=== PATIENT | male | born 1955 | race Caucasian/White ===

== ENCOUNTER 2017-04-02 00:07 | Emergency (ER) | payer BC ==
--- NOTE | 2017-04-02 00:53 | EDM.PDOC ---
ED HPI GENERAL MEDICAL PROBLEM - General Chief Complaint: Genitourinary Problem Stated Complaint: UNABLE TO PEE Time Seen by Provider: 04/02/17 00:25 Source of Information: Reports: Patient History Limitations: Reports: No Limitations - History of Present Illness INITIAL COMMENTS - FREE TEXT/NARRATIVE: Rocael comes to [facility] ED with inability to void for the past several hours. There is lower abdominal pain and fullness, urgency, and some lower back pain. There is a remote hx of BPH and TURP, progressive reduction in stream volume and delays in emptying. He does see a Urologist annually in recent years. lower abdomen Pain Score (Numeric/FACES): 10 - Related Data Allergies Allergy/AdvReac Type Severity Reaction Status Date / Time No Known Allergies Allergy Verified 04/02/17 00:32 Home Meds: Home Meds Simvastatin [Zocor] 20 mg PO BEDTIME 04/02/17 [History] Past Medical History Genitourinary History: Reports: Prostate Disorder ED ROS GENERAL - Review of Systems Review Of Systems: ROS reveals no pertinent complaints other than HPI. ED EXAM, RENAL/ - Physical Exam Exam: See Below Exam Limited By: No Limitations General Appearance: Alert, WD/WN, Moderate Distress Head: Normocephalic Neck: Normal Inspection, Supple, Non-Tender, Full Range of Motion Respiratory/Chest: Lungs Clear, Normal Breath Sounds, Chest Non-Tender Cardiovascular: Normal Peripheral Pulses, Regular Rate, Rhythm GI/Abdominal: Normal Bowel Sounds, Soft, Distended (suprapubically) (Male) Exam: No Hernia, Normal Inspection, Suprapubic Fullness, Other ( prostate 3+) Rectal (Males) Exam: BPH Back Exam: Normal Inspection Extremities: Normal Inspection Neurological: Alert, Oriented, CN II-XII Intact, Normal Cognition, Normal Gait, No Motor/Sensory Deficits Psychiatric: Normal Affect, Anxious Skin Exam: Warm, Dry Lymphatic: No Adenopathy ED PROCEDURES - Additional/Other Procedure(s) Procedure(s) (Free Text): Following consent, I inserted a #14 F Lujan catheter w 5 ml baloon uneventfully , and emptied 500 ml of parrish urine, sent to lab. Course - Vital Signs Last Recorded V/S: Last Vital Signs Temp 36.6 C 04/02/17 00:10 Pulse 91 04/02/17 00:10 Resp 18 04/02/17 00:10 BP 154/93 H 04/02/17 00:10 Pulse Ox 98 04/02/17 00:10 - Orders/Labs/Meds Orders: Active Orders 24 hr Category Date Time Status CULTURE URINE [RM] Stat Lab 04/02/17 00:59 Uncollected Departure - Departure Time of Disposition: 01:03 Disposition: Home, Self-Care 01 Condition: Good Clinical Impression: Urinary retention due to benign prostatic hyperplasia - Discharge Information Referrals: Senthil Kebede MD [Primary Care Provider] - Forms: ED Department Discharge - Problem List & Annotations (1) Urinary retention due to benign prostatic hyperplasia SNOMED Code(s): 107538231 Code(s): N40.1 - BENIGN PROSTATIC HYPERPLASIA WITH LOWER URINARY TRACT SYMP; R33.8 - OTHER RETENTION OF URINE Status: Acute Current Visit: Yes Annotation/Comment:: Routine catheter cares, and follow up with Urologist for further management. - Problem List Review Problem List Initiated/Reviewed/Updated: Yes - My Orders Last 24 Hours: My Active Orders 04/02/17 00:59 CULTURE URINE [RM] Stat - Assessment/Plan Last 24 Hours: My Active Orders 04/02/17 00:59 CULTURE URINE [RM] Stat Plan: Follow up with Urologist.
== END 2017-04-02 01:25 | disposition home or self-care (01) ==
LOC: FB.ED 00:07
DX: N40.1 Benign prostatic hyperplasia with lower urinary tract symptoms (principal); R33.8 Other retention of urine
CPT/HCPCS: 51702; 51798; 87086; 99283

== ENCOUNTER 2021-04-18 15:42 | Observation (INO) | payer BC ==
--- NOTE | 2021-04-18 16:07 | EDM.PDOC ---
ED HPI GENERAL MEDICAL PROBLEM - General Stated Complaint: SOB Time Seen by Provider: 04/18/21 16:00 Source of Information: Reports: Patient History Limitations: Reports: No Limitations - History of Present Illness INITIAL COMMENTS - FREE TEXT/NARRATIVE: 65-year-old male who presents to the emergency department reporting marked shortness of breath with activity noted today. He states that really beginning about 10 days ago he noticed about 3 times when he was having sexual relations with his that he became short of breath with sex and this was unusual as he hadn't really never had anything like that happen before. He also does refereeing for basketball games and he was doing that and really had no symptoms at all when he was going up and down the court but beginning today he was helping move a large [place]ash[place] tree at his [place]andaen and he became very short of breath when he was helping move that it took him quite a bit of time until he was no longer feeling short of breath. It did get better with rest and he was fine until he was at home and he was walking up the steps in the basement and he again got very short of breath with this and that prompted him to come to the emergency department for evaluation. He denies any chest pain, arm pain, neck pain or back or abdominal pain. He had no weakness or dizziness and had no syncope or near syncope. He has had no cough or nasal congestion. He has had no leg swelling or leg pains. He denies any pain and would rated his pain as a 0/10. At rest, he has no difficulty breathing. There are no other associated signs or symptoms. There are no other modifying factors. Onset: Other (Maybe 10 days ago but certainly symptoms were worse today.) Duration: Getting Worse Location: Reports: Other (No pain) Improves with: Reports: Rest Worsens with: Reports: Other (Activity), Movement Context: Reports: Other (As above) Associated Symptoms: Reports: No Other Symptoms (Except as above) Treatments PEDICURIST: Reports: Other (see below) (Nothing.) - Related Data Allergies Allergy/AdvReac Type Severity Reaction Status Date / Time No Known Allergies Allergy Verified 04/18/21 17:00 Home Meds: Home Meds Simvastatin [Zocor] 20 mg PO BEDTIME 04/02/17 [History] Past Medical History Cardiovascular History: Reports: High Cholesterol Genitourinary History: Reports: BPH Musculoskeletal History: Reports: Back Pain, Chronic Other Musculoskeletal History: back problem - Past Surgical History Male Surgical History: Reports: TURP-Transurethral Resection of Prostate (2) Social & Family History - Family History Cardiac: Reports: CAD (Grandfathers but none and any uncles or his father.) - Tobacco Use Tobacco Use Status *Q: Unknown Ever Used Tobacco (Nonsmoker) - Caffeine Use Caffeine Use: Reports: Coffee, Soda - Alcohol Use Alcohol Use History: Yes Alcohol Use Frequency: Weekly - Living Situation & Occupation Living situation: Reports: Occupation: Retired ED ROS GENERAL - Review of Systems Review Of Systems: See Below Constitutional: Denies: Fever, Chills, Malaise HEENT: Denies: Throat Pain, Throat Swelling Respiratory: Reports: Shortness of Breath. Denies: Cough, Sputum Cardiovascular: Reports: Dyspnea on Exertion. Denies: Chest Pain, Lightheadedness Endocrine: Denies: Fatigue GI/Abdominal: Denies: Abdominal Pain, Nausea, Vomiting : Denies: Dysuria, Hematuria Musculoskeletal: Denies: Neck Pain, Shoulder Pain, Arm Pain, Back Pain, Leg Pain Skin: Denies: Diaphoresis, Rash Neurological: Denies: Dizziness, Headache Hematologic/Lymphatic: Denies: Easy Bleeding, Easy Bruising ED EXAM, GENERAL - Physical Exam Exam: See Below Exam Limited By: No Limitations General Appearance: Alert, WD/WN, No Apparent Distress Eye Exam: Bilateral Eye: EOMI, Normal Inspection, PERRL Ears: Normal External Exam, Hearing Grossly Normal Ear Exam: Bilateral Ear: Auricle Normal Nose: Normal Inspection, Normal Mucosa, No Blood Throat/Mouth: Normal Inspection, Normal Lips, Normal Oropharynx, Normal Voice, No Airway Compromise Head: Atraumatic, Normocephalic Neck: Normal Inspection, Supple, Non-Tender, Full Range of Motion Respiratory/Chest: No Respiratory Distress, Lungs Clear, Normal Breath Sounds, No Accessory Muscle Use, Chest Non-Tender Cardiovascular: Normal Peripheral Pulses, Regular Rate, Rhythm, No Edema, No Gallop Peripheral Pulses: 2+: Radial (L), Radial (R), Dorsalis Pedis (L), Dorsalis Pedis (R) GI/Abdominal: Normal Bowel Sounds, Soft, Non-Tender, No Mass Back Exam: Normal Inspection Extremities: Normal Inspection, Normal Range of Motion, Non-Tender, No Pedal Edema, Normal Capillary Refill. No: Matilde's Sign Neurological: Alert, Oriented, CN II-XII Intact, Normal Cognition, No Motor/Sensory Deficits Psychiatric: Normal Affect Skin Exam: Warm, Dry, Intact, Normal Color, No Rash #1 Interpretation EKG Date: 04/18/21 Time: 16:02 Rhythm: NSR Rate (Beats/Min): 84 [place]: Normal P-Wave: Present QRS: Normal ST-T: Normal QT: Normal Comparison: NA - No Prior EKG Course - Vital Signs Last Recorded V/S: Last Vital Signs Temp 37.1 C 04/18/21 20:59 Pulse 68 04/18/21 20:59 Resp 16 04/18/21 20:59 BP 139/83 04/18/21 20:59 Pulse Ox 95 04/18/21 20:59 - Orders/Labs/Meds Orders: Active Orders 24 hr Category Date Time Status Ang Chest [CT] Stat Exams 04/18/21 18:10 Taken Chest 2V [CR] Stat Exams 04/18/21 16:23 Taken Sodium Chloride 0.9% [Saline Flush] Med 04/18/21 17:31 Active 10 ml FLUSH ASDIRECTED PRN Peripheral IV Insertion Adult [OM.PC] Routine Oth 04/18/21 17:31 Ordered EKG 12 Lead [EK] Routine Ther 04/18/21 16:22 Ordered Medication Orders Acetaminophen (Acetaminophen 325 Mg Tab) 650 mg PO Q4H PRN PRN Reason: Pain (Mild 1-3)/fever Sodium Chloride (Normal Saline) 1,000 mls @ 100 mls/hr IV ASDIRECTED BRUCE Last Admin: 04/18/21 21:12 Dose: 100 mls/hr Documented by: TIMOTHY Heparin Sodium/Sodium Chloride (Heparin 25,000 Units In 1/2 Ns 500 Ml) 500 mls @ 35.924 mls/hr IV ASDIRECTED BRUCE; Protocol Last Admin: 04/18/21 21:16 Dose: 18 units/kg/hr, 35.924 mls/hr Documented by: TIMOTHY Cosigned by: NAKUL Ondansetron HCl (Ondansetron 4 Mg/2 Ml Sdv) 4 mg IV Q6H PRN PRN Reason: Nausea/Vomiting Sodium Chloride (Sodium Chloride 0.9% 10 Ml Syringe) 10 ml FLUSH ASDIRECTED PRN PRN Reason: Keep Vein Open Last Admin: 04/18/21 17:45 Dose: 10 ml Documented by: NAKUL Labs: Laboratory Tests 04/18/21 04/18/21 04/18/21 Range/Units 16:30 16:30 16:30 WBC 8.5 (3.2-10.1) x10-3/uL RBC 4.87 (3.90-5.90) x10(6)uL Hgb 14.8 (12.9-17.7) g/dL Hct 43.0 (38.3-50.1) % MCV 88.3 (80.8-98.7) fL MCH 30.4 (27.0-33.3) pg MCHC 34.4 (28.7-35.3) g/dL RDW 12.8 (12.4-15.0) % Plt Count 269 (117-477) x10(3)uL APTT (24.4-33.2) SECONDS D-Dimer, Quantitative 8.96 H (0.0-0.59) mg/LFEU Sodium 139 (135-145) mmol/L Potassium 4.1 (3.5-5.3) mmol/L Chloride 104 (100-110) mmol/L Carbon Dioxide 27 (21-32) mmol/L BUN 19 H (7-18) mg/dL Creatinine 1.5 H (0.70-1.30) mg/dL Est Cr Clr Drug Dosing TNP Estimated GFR (MDRD) 47 L (>60) BUN/Creatinine Ratio 12.7 (9-20) Glucose 94 (80-116) mg/dL Calcium 8.6 (8.6-10.2) mg/dL Magnesium 2.0 (1.8-2.5) mg/dL Total Bilirubin 0.6 (0.1-1.3) mg/dL AST 26 H (5-25) IU/L ALT 41 H (12-36) U/L Alkaline Phosphatase 61 (56-112) IU/L Troponin I (4.0-60.3) pg/mL NT-Pro-B Natriuret Pep (<=125) pg/mL Total Protein 6.9 (6.0-8.0) g/dL Albumin 3.8 (3.2-4.6) g/dL Globulin 3.1 g/dL Albumin/Globulin Ratio 1.2 TSH, Ultra Sensitive (0.36-3.74) IU/mL SARS-CoV-2 RNA (MATILDA) (NEGATIVE) 04/18/21 04/18/21 04/18/21 Range/Units 16:30 16:30 16:30 WBC (3.2-10.1) x10-3/uL RBC (3.90-5.90) x10(6)uL Hgb (12.9-17.7) g/dL Hct (38.3-50.1) % MCV (80.8-98.7) fL MCH (27.0-33.3) pg MCHC (28.7-35.3) g/dL RDW (12.4-15.0) % Plt Count (117-477) x10(3)uL APTT 26.0 (24.4-33.2) SECONDS D-Dimer, Quantitative (0.0-0.59) mg/LFEU Sodium (135-145) mmol/L Potassium (3.5-5.3) mmol/L Chloride (100-110) mmol/L Carbon Dioxide (21-32) mmol/L BUN (7-18) mg/dL Creatinine (0.70-1.30) mg/dL Est Cr Clr Drug Dosing Estimated GFR (MDRD) (>60) BUN/Creatinine Ratio (9-20) Glucose (80-116) mg/dL Calcium (8.6-10.2) mg/dL Magnesium (1.8-2.5) mg/dL Total Bilirubin (0.1-1.3) mg/dL AST (5-25) IU/L ALT (12-36) U/L Alkaline Phosphatase (56-112) IU/L Troponin I 14.7 (4.0-60.3) pg/mL NT-Pro-B Natriuret Pep 140 H (<=125) pg/mL Total Protein (6.0-8.0) g/dL Albumin (3.2-4.6) g/dL Globulin g/dL Albumin/Globulin Ratio TSH, Ultra Sensitive 2.16 (0.36-3.74) IU/mL SARS-CoV-2 RNA (MATILDA) (NEGATIVE) 04/18/21 Range/Units 19:00 WBC (3.2-10.1) x10-3/uL RBC (3.90-5.90) x10(6)uL Hgb (12.9-17.7) g/dL Hct (38.3-50.1) % MCV (80.8-98.7) fL MCH (27.0-33.3) pg MCHC (28.7-35.3) g/dL RDW (12.4-15.0) % Plt Count (117-477) x10(3)uL APTT (24.4-33.2) SECONDS D-Dimer, Quantitative (0.0-0.59) mg/LFEU Sodium (135-145) mmol/L Potassium (3.5-5.3) mmol/L Chloride (100-110) mmol/L Carbon Dioxide (21-32) mmol/L BUN (7-18) mg/dL Creatinine (0.70-1.30) mg/dL Est Cr Clr Drug Dosing Estimated GFR (MDRD) (>60) BUN/Creatinine Ratio (9-20) Glucose (80-116) mg/dL Calcium (8.6-10.2) mg/dL Magnesium (1.8-2.5) mg/dL Total Bilirubin (0.1-1.3) mg/dL AST (5-25) IU/L ALT (12-36) U/L Alkaline Phosphatase (56-112) IU/L Troponin I (4.0-60.3) pg/mL NT-Pro-B Natriuret Pep (<=125) pg/mL Total Protein (6.0-8.0) g/dL Albumin (3.2-4.6) g/dL Globulin g/dL Albumin/Globulin Ratio TSH, Ultra Sensitive (0.36-3.74) IU/mL SARS-CoV-2 RNA (MATILDA) Negative (NEGATIVE) Meds: Medications Generic Name Dose Route Start Last Admin Trade Name Freq PRN Reason Stop Dose Admin Acetaminophen 650 mg 04/18/21 20:58 Acetaminophen 325 Mg Tab PO Q4H PRN Pain (Mild 1-3)/fever Sodium Chloride 1,000 mls @ 100 mls/hr 04/18/21 21:00 04/18/21 21:12 Normal Saline IV 100 mls/hr ASDIRECTED BRUCE Administration Heparin Sodium/Sodium Chloride 500 mls @ 35.924 mls/hr 04/18/21 21:15 04/18/21 21:16 Heparin 25,000 Units In 1/2 Ns 500 Ml IV 18 units/kg/hr ASDIRECTED BRUCE 35.924 mls/hr Administration Protocol 18 UNITS/KG/HR Ondansetron HCl 4 mg 04/18/21 20:58 Ondansetron 4 Mg/2 Ml Sdv IV Q6H PRN Nausea/Vomiting Sodium Chloride 10 ml 04/18/21 17:31 04/18/21 17:45 Sodium Chloride 0.9% 10 Ml Syringe FLUSH 10 ml ASDIRECTED PRN Administration Keep Vein Open Discontinued Medications Generic Name Dose Route Start Last Admin Trade Name Freq PRN Reason Stop Dose Admin Heparin Sodium (Porcine) 7,500 units 04/18/21 19:38 04/18/21 21:15 Heparin Sodium 5,000 Units/Ml Vial IVPUSH 04/18/21 19:39 7,500 units ONETIME ONE Administration Sodium Chloride 500 mls @ 999 mls/hr 04/18/21 17:31 04/18/21 17:45 Normal Saline IV 04/18/21 18:01 999 mls/hr .BOLUS ONE Administration Heparin Sodium/Dextrose 25,000 units in 500 mls @ 35.924 mls/hr 04/18/21 19:45 Heparin 25,000 Units In D5w 500 Ml IV TITRATE [facility] Protocol 18 UNITS/KG/HR Iopamidol 75 ml 04/18/21 18:14 04/18/21 18:49 Iopamidol 755 Mg/Ml 75 Ml Bottle IV 04/18/21 18:15 75 ml ONETIME ONE Administration - Radiology Interpretation Free Text/Narrative:: Two-view chest x-ray showed no acute disease per the [facility] radiologist. CTA of the chest shows moderate pulmonary emboli seen throughout the bilateral hemithoraces without evidence of heart strain. There is bibasilar atelectasis. This was per the [facility] radiologist. - Re-Assessments/Exams Free Text/Narrative Re-Assessment/Exam: 04/18/21 17:15: White blood cell count is 8.5. Hemoglobin is 14.8. Platelet count is normal. Sodium is 139. Potassium is 4.1. Bicarbonate is 27. BUN is 19 and creatinine is 1.5. Glucose is 94. AST and ALT are mildly elevated. ProBNP is normal. A troponin was normal. A TSH was normal. A d-dimer was 8.96. With the d-dimer elevated, he will need a CTA of his chest to further assess him for pulmonary emboli. This was discussed with the patient and he would be in agreement with this. I will hydrate the patient with normal saline prior to the CT scan. 04/18/21 19:10: CTA of the chest showed bilateral pulmonary emboli and a moderate burden. There was no evidence of RV strain. The patient is remaining hemodynamically and respiratory stable. He will need admission with anticoagulation and close cardiac monitoring. I will discuss all this with the patient and his but I will also call and discuss this with one of the internists at [facility] in [place]. 04/18/21 19:20: I discussed all this with the patient and his . I told him that he would need admission to the hospital and I feel that he would be appropriate for admission to [facility]. I also offered calling to discuss his case with at [facility] [place] and possibly transferred to [facility] [place]. They would really want to be admitted to this facility. 04/18/21 19:30: I discussed the patient's case with Dr. Martin, hospitalist at [facility] in [place], and he felt that the patient should be treated with IV heparin for DVT protocol negative secondary to the patient's creatinine elevation. He felt that once the patient was stabilized on this and was doing okay, he could be switched to oral anticoagulation at that time. 04/18/21 20:05: The patient's rapid Covid came back negative. I have placed admission orders. The patient will be going to the floor. His heparin bolus has been given and the heparin drip is being established. Care the patient will go to Dr. Reyes at 7 AM on 04/19/2021. I did place the patient on observation status initially and is to be reevaluated by Dr. Reyes to determine if inpatient status is appropriate at that time. Departure - Departure Time of Disposition: 20:00 Disposition: Refer to Observation Condition: Fair (Guarded.) Clinical Impression: Bilateral pulmonary embolism, Acute kidney injury, Elevated blood pressure reading - Discharge Information Sepsis Event Note (ED) - Focused Exam Vital Signs: Vital Signs Temp Pulse Resp BP Pulse Ox 04/18/21 19:15 80 173/91 H 94 L 04/18/21 19:00 157/94 H 04/18/21 18:00 68 150/91 H 04/18/21 17:00 161/97 H 95 04/18/21 16:30 68 169/108 H 95 04/18/21 15:50 36.9 C 87 20 145/106 H 95 - My Orders Last 24 Hours: My Active Orders 04/18/21 16:22 EKG 12 Lead [EK] Routine 04/18/21 16:23 Chest 2V [CR] Stat 04/18/21 17:31 Sodium Chloride 0.9% [Saline Flush] 10 ml FLUSH ASDIRECTED PRN Peripheral IV Insertion Adult [OM.PC] Routine 04/18/21 18:10 Ang Chest [CT] Stat - Assessment/Plan Last 24 Hours: My Active Orders 04/18/21 16:22 EKG 12 Lead [EK] Routine 04/18/21 16:23 Chest 2V [CR] Stat 04/18/21 17:31 Sodium Chloride 0.9% [Saline Flush] 10 ml FLUSH ASDIRECTED PRN Peripheral IV Insertion Adult [OM.PC] Routine 04/18/21 18:10 Ang Chest [CT] Stat
[2021-04-18] MEDS ORDERED: Sodium Chloride 0.9% 500 ML IV ONE (17:31)
[2021-04-18] MEDS ORDERED: Sodium Chloride 0.9% 10 ML Syringe FLUSH PRN (17:31)
[2021-04-18] MEDS ORDERED: Iopamidol 755 Mg/ML 75 ML Bottle IV ONE (18:14)
[2021-04-18] MEDS ORDERED: Heparin Sodium 5,000 Units/ML Vial IVPUSH ONE (19:38)
[2021-04-18] MEDS ORDERED: Heparin Sodium/D5W 25,000 UNITS/500 ML BAG IV SCH (19:45)
[2021-04-18] MEDS ORDERED: Ondansetron 4 MG/2 ML SDV IV PRN (20:58)
[2021-04-18] MEDS ORDERED: Acetaminophen 325 MG Tab PO PRN (20:58)
[2021-04-18] MEDS: Sodium Chloride 0.9% 1,000 ML IV SCH (21:12)
[2021-04-18] MEDS ORDERED: Heparin Sodium/0.45% NaCl 500 ML IV SCH (21:15)
[2021-04-19] MEDS: Sodium Chloride 0.9% 1,000 ML IV SCH (08:06)
[2021-04-19] MEDS ORDERED: Enoxaparin 100 MG/1 ML Syringe SUBCUT ONE (09:23)
--- NOTE | 2021-04-19 09:27 | PCM.HP.2 ---
H&P History of Present Illness - General Date of Service: 04/19/21 Admit Problem/Dx: Admission Diagnosis/Problem Admission Diagnosis/Problem Pulmonary embolism Source of Information: Patient History Limitations: Reports: No Limitations - History of Present Illness Initial Comments - Free Text/Narative: It is a 65-year-old male admitted through the ER with a PE. He presented there yesterday with a one-day history of shortness of breath, unprovoked with no recent surgery or long-term travel. Is previously healthy, with exception of hyperlipidemia. He is a nonsmoker. - Related Data Allergies/Adverse Reactions: Allergies Allergy/AdvReac Type Severity Reaction Status Date / Time No Known Allergies Allergy Verified 04/18/21 17:00 Home Medications: Home Meds Simvastatin [Zocor] 20 mg PO BEDTIME 04/02/17 [History] Enoxaparin Sodium [Lovenox] 100 mg SQ BID #30 ml 04/19/21 [Rx] Warfarin [Coumadin] 10 mg PO DAILY #15 tab 04/19/21 [Rx] Past Medical History Cardiovascular History: Reports: High Cholesterol Genitourinary History: Reports: BPH Musculoskeletal History: Reports: Back Pain, Chronic Other Musculoskeletal History: back problem - Past Surgical History Male Surgical History: Reports: TURP-Transurethral Resection of Prostate (2) Social & Family History - Family History Family Medical History: No Pertinent Family History Cardiac: Reports: CAD (Grandfathers but none and any uncles or his father.) - Tobacco Use Tobacco Use Status *Q: Unknown Ever Used Tobacco (Nonsmoker) Second Hand Smoke Exposure: No - Caffeine Use Caffeine Use: Reports: Soda Other Caffeine Use: rare - Alcohol Use Days Per Week of Alcohol Use: 1 Number of Drinks Per Day: 2 Total Drinks Per Week: 2 - Recreational Drug Use Recreational Drug Use: No - Living Situation & Occupation Living situation: Reports: Occupation: Retired H&P Review of Systems - Review of Systems: Review Of Systems: Comprehensive ROS is negative, except as noted in HPI. Exam - Exam Exam: See Below - Vital Signs Vital Signs: Last Vital Signs Temp 97.8 F 04/19/21 05:00 Pulse 69 04/19/21 05:00 Resp 18 04/19/21 05:00 BP 115/72 04/19/21 05:00 Pulse Ox 92 L 04/19/21 05:00 Weight: 101.35 kg - Exam General: Alert, Oriented, 4 HEENT: PERRLA, Hearing Intact, Mucosa Moist & Young Harris, Nares Patent, Normal Nasal Septum, Posterior Pharynx Clear, Conjunctiva Clear, EOMI, EACs Clear, TMs Clear Neck: Supple, Trachea Midline, 2 Lungs: Clear to Auscultation, Normal Respiratory Effort Cardiovascular: Regular Rate, Regular Rhythm GI/Abdominal Exam: Normal Bowel Sounds, Soft, Non-Tender, No Organomegaly, No Distention, No Abnormal Bruit, No Mass, Pelvis Stable (Male) Exam: No Hernia, Normal Inspection, Normal Prostate, Circumcised Rectal (Males) Exam: Normal Exam, Normal Rectal Tone, Prostate Normal Back Exam: Normal Inspection, Full Range of Motion, NT Extremities: Normal Inspection, Normal Range of Motion, Non-Tender, No Pedal Edema, Normal Capillary Refill Skin: Warm, Dry, Intact Neurological: Cranial Nerves Intact, Reflexes Equal Bilateral Neuro Extensive - Mental Status: Alert, Oriented x3, Normal Mood/Affect, Normal Cognition Neuro Extensive - Motor, Sensory, Reflexes: CN II-XII Intact, Normal Gait, Normal Reflexes Psychiatric: Alert, Normal Affect, Normal Mood - Patient Data Lab Results Last 24 hrs: Laboratory Results - last 24 hr 04/18/21 04/18/21 04/18/21 Range/Units 16:30 16:30 16:30 WBC 8.5 (3.2-10.1) x10-3/uL RBC 4.87 (3.90-5.90) x10(6)uL Hgb 14.8 (12.9-17.7) g/dL Hct 43.0 (38.3-50.1) % MCV 88.3 (80.8-98.7) fL MCH 30.4 (27.0-33.3) pg MCHC 34.4 (28.7-35.3) g/dL RDW 12.8 (12.4-15.0) % Plt Count 269 (117-477) x10(3)uL MPV (6.7-11.0) fL Neut % (Auto) (40.3-71.8) % Lymph % (Auto) (15.8-45.3) % Walsh % (Auto) (5.5-15.2) % Eos % (Auto) (0.1-6.8) % Baso % (Auto) (0.3-3.8) % Neut # (Auto) (1.7-6.9) x10-3/uL Lymph # (Auto) (0.5-4.5) x10-3/uL Walsh # (Auto) (0.0-1.2) x10-3/uL Eos # (Auto) (0.0-0.6) x10-3/uL Baso # (Auto) (0.0-0.3) x10-3/uL APTT (24.4-33.2) SECONDS D-Dimer, Quantitative 8.96 H (0.0-0.59) mg/LFEU Sodium 139 (135-145) mmol/L Potassium 4.1 (3.5-5.3) mmol/L Chloride 104 (100-110) mmol/L Carbon Dioxide 27 (21-32) mmol/L BUN 19 H (7-18) mg/dL Creatinine 1.5 H (0.70-1.30) mg/dL Est Cr Clr Drug Dosing TNP Estimated GFR (MDRD) 47 L (>60) BUN/Creatinine Ratio 12.7 (9-20) Glucose 94 (80-116) mg/dL Calcium 8.6 (8.6-10.2) mg/dL Magnesium 2.0 (1.8-2.5) mg/dL Total Bilirubin 0.6 (0.1-1.3) mg/dL AST 26 H (5-25) IU/L ALT 41 H (12-36) U/L Alkaline Phosphatase 61 (56-112) IU/L Troponin I (4.0-60.3) pg/mL NT-Pro-B Natriuret Pep (<=125) pg/mL Total Protein 6.9 (6.0-8.0) g/dL Albumin 3.8 (3.2-4.6) g/dL Globulin 3.1 g/dL Albumin/Globulin Ratio 1.2 TSH, Ultra Sensitive (0.36-3.74) IU/mL SARS-CoV-2 RNA (MATILDA) (NEGATIVE) 04/18/21 04/18/21 04/18/21 Range/Units 16:30 16:30 16:30 WBC (3.2-10.1) x10-3/uL RBC (3.90-5.90) x10(6)uL Hgb (12.9-17.7) g/dL Hct (38.3-50.1) % MCV (80.8-98.7) fL MCH (27.0-33.3) pg MCHC (28.7-35.3) g/dL RDW (12.4-15.0) % Plt Count (117-477) x10(3)uL MPV (6.7-11.0) fL Neut % (Auto) (40.3-71.8) % Lymph % (Auto) (15.8-45.3) % Walsh % (Auto) (5.5-15.2) % Eos % (Auto) (0.1-6.8) % Baso % (Auto) (0.3-3.8) % Neut # (Auto) (1.7-6.9) x10-3/uL Lymph # (Auto) (0.5-4.5) x10-3/uL Walsh # (Auto) (0.0-1.2) x10-3/uL Eos # (Auto) (0.0-0.6) x10-3/uL Baso # (Auto) (0.0-0.3) x10-3/uL APTT 26.0 (24.4-33.2) SECONDS D-Dimer, Quantitative (0.0-0.59) mg/LFEU Sodium (135-145) mmol/L Potassium (3.5-5.3) mmol/L Chloride (100-110) mmol/L Carbon Dioxide (21-32) mmol/L BUN (7-18) mg/dL Creatinine (0.70-1.30) mg/dL Est Cr Clr Drug Dosing Estimated GFR (MDRD) (>60) BUN/Creatinine Ratio (9-20) Glucose (80-116) mg/dL Calcium (8.6-10.2) mg/dL Magnesium (1.8-2.5) mg/dL Total Bilirubin (0.1-1.3) mg/dL AST (5-25) IU/L ALT (12-36) U/L Alkaline Phosphatase (56-112) IU/L Troponin I 14.7 (4.0-60.3) pg/mL NT-Pro-B Natriuret Pep 140 H (<=125) pg/mL Total Protein (6.0-8.0) g/dL Albumin (3.2-4.6) g/dL Globulin g/dL Albumin/Globulin Ratio TSH, Ultra Sensitive 2.16 (0.36-3.74) IU/mL SARS-CoV-2 RNA (MATILDA) (NEGATIVE) 04/18/21 04/19/21 04/19/21 Range/Units 19:00 01:40 06:15 WBC 6.6 (3.2-10.1) x10-3/uL RBC 4.56 (3.90-5.90) x10(6)uL Hgb 13.7 (12.9-17.7) g/dL Hct 40.8 (38.3-50.1) % MCV 89.5 (80.8-98.7) fL MCH 30.1 (27.0-33.3) pg MCHC 33.6 (28.7-35.3) g/dL RDW 12.7 (12.4-15.0) % Plt Count 262 (117-477) x10(3)uL MPV 8.4 (6.7-11.0) fL Neut % (Auto) 42.1 (40.3-71.8) % Lymph % (Auto) 41.6 (15.8-45.3) % Walsh % (Auto) 8.7 (5.5-15.2) % Eos % (Auto) 6.1 (0.1-6.8) % Baso % (Auto) 1.5 (0.3-3.8) % Neut # (Auto) 2.8 (1.7-6.9) x10-3/uL Lymph # (Auto) 2.7 (0.5-4.5) x10-3/uL Walsh # (Auto) 0.6 (0.0-1.2) x10-3/uL Eos # (Auto) 0.4 (0.0-0.6) x10-3/uL Baso # (Auto) 0.1 (0.0-0.3) x10-3/uL APTT 128.4 H* (24.4-33.2) SECONDS D-Dimer, Quantitative (0.0-0.59) mg/LFEU Sodium (135-145) mmol/L Potassium (3.5-5.3) mmol/L Chloride (100-110) mmol/L Carbon Dioxide (21-32) mmol/L BUN (7-18) mg/dL Creatinine (0.70-1.30) mg/dL Est Cr Clr Drug Dosing Estimated GFR (MDRD) (>60) BUN/Creatinine Ratio (9-20) Glucose (80-116) mg/dL Calcium (8.6-10.2) mg/dL Magnesium (1.8-2.5) mg/dL Total Bilirubin (0.1-1.3) mg/dL AST (5-25) IU/L ALT (12-36) U/L Alkaline Phosphatase (56-112) IU/L Troponin I (4.0-60.3) pg/mL NT-Pro-B Natriuret Pep (<=125) pg/mL Total Protein (6.0-8.0) g/dL Albumin (3.2-4.6) g/dL Globulin g/dL Albumin/Globulin Ratio TSH, Ultra Sensitive (0.36-3.74) IU/mL SARS-CoV-2 RNA (MATILDA) Negative (NEGATIVE) 04/19/21 04/19/21 04/19/21 Range/Units 06:15 06:15 06:15 WBC (3.2-10.1) x10-3/uL RBC (3.90-5.90) x10(6)uL Hgb (12.9-17.7) g/dL Hct (38.3-50.1) % MCV (80.8-98.7) fL MCH (27.0-33.3) pg MCHC (28.7-35.3) g/dL RDW (12.4-15.0) % Plt Count (117-477) x10(3)uL MPV (6.7-11.0) fL Neut % (Auto) (40.3-71.8) % Lymph % (Auto) (15.8-45.3) % Walsh % (Auto) (5.5-15.2) % Eos % (Auto) (0.1-6.8) % Baso % (Auto) (0.3-3.8) % Neut # (Auto) (1.7-6.9) x10-3/uL Lymph # (Auto) (0.5-4.5) x10-3/uL Walsh # (Auto) (0.0-1.2) x10-3/uL Eos # (Auto) (0.0-0.6) x10-3/uL Baso # (Auto) (0.0-0.3) x10-3/uL APTT 68.3 H* (24.4-33.2) SECONDS D-Dimer, Quantitative (0.0-0.59) mg/LFEU Sodium 140 (135-145) mmol/L Potassium 4.3 (3.5-5.3) mmol/L Chloride 108 (100-110) mmol/L Carbon Dioxide 26 (21-32) mmol/L BUN 18 (7-18) mg/dL Creatinine 1.3 (0.70-1.30) mg/dL Est Cr Clr Drug Dosing 60.05 Estimated GFR (MDRD) 56 L (>60) BUN/Creatinine Ratio 13.8 (9-20) Glucose 96 (80-116) mg/dL Calcium 7.9 L (8.6-10.2) mg/dL Magnesium (1.8-2.5) mg/dL Total Bilirubin (0.1-1.3) mg/dL AST (5-25) IU/L ALT (12-36) U/L Alkaline Phosphatase (56-112) IU/L Troponin I 10.8 (4.0-60.3) pg/mL NT-Pro-B Natriuret Pep (<=125) pg/mL Total Protein (6.0-8.0) g/dL Albumin (3.2-4.6) g/dL Globulin g/dL Albumin/Globulin Ratio TSH, Ultra Sensitive (0.36-3.74) IU/mL SARS-CoV-2 RNA (MATILDA) (NEGATIVE) Result Diagrams: 04/19/21 06:15 04/19/21 06:15 Sepsis Event Note - Evaluation Sepsis Screening Result: No Definite Risk - Focused Exam Vital Signs: Vital Signs Temp Pulse Resp BP Pulse Ox 04/19/21 05:00 97.8 F 69 18 115/72 92 L 11/27/21 01:56 98.5 F 69 18 105/69 92 L - Problem List (1) Bilateral pulmonary embolism SNOMED Code(s): 71608509 ICD Code: I26.99 - OTHER PULMONARY EMBOLISM WITHOUT ACUTE COR PULMONALE Status: Acute Current Visit: Yes Problem List Initiated/Reviewed/Updated: Yes Orders Last 24hrs: Active Orders 24 hr Category Date Time Status Patient Status [ADT] Routine ADT 04/18/21 20:59 Active Height and Weight [RC] UPON Care 04/18/21 20:58 Active Intake and Output [RC] 06,14,22 Care 04/18/21 21:01 Active Oxygen Therapy [RC] PRN Care 04/18/21 20:59 Active Telemetry Monitoring [Cardiac Monitoring] [RC] QSHIFT Care 04/18/21 21:17 Acti ve Up With Assistance [RC] ASDIRECTED Care 04/18/21 20:58 Active Up to Chair [RC] ASDIRECTED Care 04/18/21 20:58 Active Vital Signs [RC] 00,04,08,12,16,20 Care 04/18/21 20:59 Active Heart Healthy Diet [DIET] Diet 04/18/21 Dinner Active Ang Chest [CT] Stat Exams 04/18/21 18:10 Taken Chest 2V [CR] Stat Exams 04/18/21 16:23 Taken Acetaminophen [TylenoL] Med 04/18/21 20:58 Active 650 mg PO Q4H PRN Enoxaparin [Lovenox] Med 04/19/21 09:23 Once 100 mg SUBCUT ONETIME ONE Heparin Sodium/0.45% NaCl [Heparin 25,000 Units in 1/2 Med 04/18/21 21:15 Active NS 500 ML] 500 ml IV ASDIRECTED Ondansetron [Zofran] Med 04/18/21 20:58 Active 4 mg IV Q6H PRN Sodium Chloride 0.9% [Normal Saline] 1,000 ml Med 04/18/21 21:00 Active IV ASDIRECTED Sodium Chloride 0.9% [Saline Flush] Med 04/18/21 17:31 Active 10 ml FLUSH ASDIRECTED PRN Peripheral IV Insertion Adult [OM.PC] Routine Oth 04/18/21 17:31 Ordered Resuscitation Status Routine Resus Stat 04/18/21 20:58 Ordered EKG 12 Lead [EK] Routine Ther 04/18/21 16:22 Ordered Medication Orders Acetaminophen (Acetaminophen 325 Mg Tab) 650 mg PO Q4H PRN PRN Reason: Pain (Mild 1-3)/fever Enoxaparin Sodium (Enoxaparin 100 Mg/1 Ml Syringe) 100 mg SUBCUT ONETIME ONE Stop: 04/19/21 09:24 Sodium Chloride (Normal Saline) 1,000 mls @ 100 mls/hr IV ASDIRECTED BRUCE Last Admin: 04/18/21 21:12 Dose: 100 mls/hr Documented by: TIMOTHY Heparin Sodium/Sodium Chloride (Heparin 25,000 Units In 1/2 Ns 500 Ml) 500 mls @ 35.924 mls/hr IV ASDIRECTED [facility]; Protocol Last Titration: 04/19/21 03:38 Dose: 15 units/kg/hr, 29.937 mls/hr Documented by: TIMOTHY Cosigned by: BRAYDEN Titration: 04/19/21 02:37 Dose: 0 units/kg/hr, 0 mls/hr Documented by: TIMOTHY Cosigned by: BRAYDEN Admin: 04/18/21 21:16 Dose: 18 units/kg/hr, 35.924 mls/hr Documented by: TIMOTHY Cosigned by: NAKUL Ondansetron HCl (Ondansetron 4 Mg/2 Ml Sdv) 4 mg IV Q6H PRN PRN Reason: Nausea/Vomiting Sodium Chloride (Sodium Chloride 0.9% 10 Ml Syringe) 10 ml FLUSH ASDIRECTED PRN PRN Reason: Keep Vein Open Last Admin: 04/18/21 17:45 Dose: 10 ml Documented by: NAKUL Assessment/Plan Comment:: Patient is hemodynamically stable, normal labs this morning and mildly symptomatic. He does not need of oxygenation. I will discharge him home on low molecular weight heparin, and Coumadin. He needs follow-up on Wednesday with an INR.
== END 2021-04-19 11:15 | disposition home or self-care (01) ==
LOC: FB.ED 15:42 → FB.MS 20:13
PROVIDERS: ADMIT Family Medicine; ATTEND Family Medicine
DX: I26.94 Multiple subsegmental thrombotic pulmonary emboli without acute cor pulmonale (principal); E78.00 Pure hypercholesterolemia, unspecified; N40.0 Benign prostatic hyperplasia without lower urinary tract symptoms; Z98.890 Other specified postprocedural states; Z20.822 Contact with and (suspected) exposure to COVID-19; Z79.899 Other long term (current) drug therapy; Z79.01 Long term (current) use of anticoagulants
CPT/HCPCS: 36415; 71046; 71275; 80048; 80053; 83735; 83880; 84443; 84484; 85025; 85027; 85379; 85730; 93005; 96365; 96366; 96372; 99285-25; G0378; J1644; J1650; J7030; J7040; Q9967; U0002